=== PATIENT | female | born 1970 | race Caucasian/White ===

== ENCOUNTER → 2017-07-30 | Outpatient (CLI) | payer BC ==
[~2017-07-30] MED LIST: VICODIN 5/500 T1 TAB PO
--- NOTE | 2017-07-31 06:24 | RADIOLOGY REPORT PS360 ---
US PELVIS-TRANSVAGINAL ONLY HISTORY: RT ADNEXAL MASS ORDERING PHYSICIAN: Moises Mo MD PATIENT AGE: 46 years COMPARISON: None FINDINGS: The uterus is 10 x 4 x 4 cm. No obvious uterine mass. Endometrium is not well delineated. Right ovary is 2.3 x 2 cm and the left ovary is 2.6 x 2 cm. No adnexal mass is evident. The right ovary has an unremarkable appearance. There is a 16 mm cyst within the left ovary. No cul-de-sac fluid evident. IMPRESSION: 1. Unremarkable pelvic ultrasound. 2. No evidence of right adnexal mass
== END ==
LOC: RAD 12:53
DX: D48.7 Neoplasm of uncertain behavior of other specified sites (principal)